=== PATIENT | male | born 1985 | race Caucasian/White ===

== ENCOUNTER 2016-08-21 10:50 | Inpatient (IN) | payer MEDICARE, MEDICAID ==
[~2016-08-21] VITALS: Ht 180.3 cm; Wt 81.8 kg
[~2016-08-21 10:50] MED LIST: QUET200T PO
[2016-08-21 13:36] VITALS: BP 110/66
[2016-08-21] MEDS ORDERED: ZOLPIDEM TARTRATE 10 MG TABLET PO PRN (13:45)
[2016-08-21] MEDS ORDERED: HALOPERIDOL 5 MG TABLET PO PRN (13:45)
[2016-08-21 14:08] VITALS: BP 120/65
[2016-08-21 14:15] VITALS: BP 120/65
[2016-08-21] MEDS ORDERED: INFLUENZA VIRUS VACCINE QVS 2016-17 (3YR+)/PF 60 MCG/0.5 ML SYRINGE IM ONE (14:15)
[2016-08-21 16:06] VITALS: BP 108/62
[2016-08-21] MEDS: QUEtiapine FUMARATE 200 MG TABLET PO SCH (20:41)
[2016-08-22] MEDS: NICOTINE 21 MG/24 HOUR PATCH TD SCH (08:48)
[2016-08-22] MEDS: QUEtiapine FUMARATE 200 MG TABLET PO SCH ×2 (08:48→20:41)
[2016-08-22] MEDS: LORazepam 2 MG TABLET PO PRN (08:50)
[2016-08-22] MEDS ORDERED: ALBUTEROL SULFATE HFA 90 MCG/PUFF 8 GM INHALER IH PRN (11:00)
[2016-08-22] MEDS ORDERED: PETROLATUM,WHITE 71 GM JELLY TP PRN (11:00)
[2016-08-22] MEDS ORDERED: ONDANSETRON HCL 4 MG TABLET PO PRN (11:00)
[2016-08-22] MEDS ORDERED: CloNIDine HCL 0.1 MG TABLET PO PRN (11:00)
[2016-08-22] MEDS ORDERED: MAGNESIUM HYDROXIDE SUSPENSION 30 ML UDCUP PO PRN (11:00)
[2016-08-22] MEDS ORDERED: LOPERAMIDE HCL 2 MG CAPSULE PO PRN (11:00)
[2016-08-22 16:24] VITALS: BP 122/79
[2016-08-22] MEDS: BACITRACIN 28.4 GM OINTMENT TP PRN (18:06)
[2016-08-23] MEDS: BACITRACIN 28.4 GM OINTMENT TP PRN (02:14)
[2016-08-23 02:55] VITALS: BP 108/74
[2016-08-23 06:35] VITALS: BP 126/87
[2016-08-23] MEDS: LORazepam 2 MG TABLET PO PRN ×3 (06:43→20:37)
[2016-08-23 08:14] VITALS: BP 115/73
[2016-08-23] MEDS: QUEtiapine FUMARATE 200 MG TABLET PO SCH ×2 (10:11→20:36)
[2016-08-23] MEDS: NICOTINE 21 MG/24 HOUR PATCH TD SCH (10:11)
[2016-08-23] MEDS: IBUPROFEN 600 MG TABLET PO PRN (13:41)
[2016-08-23] MEDS: BENZOCAINE/MENTHOL LOZENGE MM PRN (15:04)
[2016-08-23 16:04] VITALS: BP 110/73
[2016-08-24 02:10] VITALS: BP 110/66
[2016-08-24] MEDS: ACETAMINOPHEN 325 MG TABLET PO PRN ×2 (02:12→13:39)
[2016-08-24 05:55] VITALS: BP 126/64
[2016-08-24] MEDS: MAG HYDROX/AL HYDROX/SIMETH ES 30 ML SUSPENSION UDCUP PO PRN ×2 (06:02→13:00)
[2016-08-24] MEDS: NICOTINE 21 MG/24 HOUR PATCH TD SCH (09:00)
[2016-08-24] MEDS: IBUPROFEN 600 MG TABLET PO PRN (09:28)
[2016-08-24] MEDS: QUEtiapine FUMARATE 200 MG TABLET PO SCH ×2 (09:28→20:41)
[2016-08-24 16:12] VITALS: BP 100/63
[2016-08-24 16:21] VITALS: BP 120/77
[2016-08-24] MEDS: LORazepam 2 MG TABLET PO PRN (16:21)
[2016-08-25 02:53] VITALS: BP 123/79
[2016-08-25 06:12] VITALS: BP 107/64
[2016-08-25] MEDS: IBUPROFEN 600 MG TABLET PO PRN ×2 (06:18→14:07)
[2016-08-25 08:21] VITALS: BP 95/64
[2016-08-25] MEDS: NICOTINE 21 MG/24 HOUR PATCH TD SCH (08:42)
[2016-08-25] MEDS: QUEtiapine FUMARATE 200 MG TABLET PO SCH ×2 (08:42→20:42)
[2016-08-25] MEDS: BENZOCAINE/MENTHOL LOZENGE MM PRN (09:29)
[2016-08-25] MEDS: LORazepam 2 MG TABLET PO PRN (12:37)
[2016-08-25 14:03] VITALS: BP 116/75
[2016-08-25 16:16] VITALS: BP 108/86
[2016-08-26 00:35] VITALS: BP 115/63
[2016-08-26] MEDS: LORazepam 2 MG TABLET PO PRN ×2 (00:43→15:40)
[2016-08-26] MEDS: IBUPROFEN 600 MG TABLET PO PRN ×2 (00:43→16:27)
[2016-08-26 06:27] VITALS: BP 106/72
[2016-08-26] MEDS: ACETAMINOPHEN 325 MG TABLET PO PRN (06:28)
[2016-08-26 08:21] LABS: BASOPHILS % (AUTO) 0.8 % (0.0-2.0); EOSINOPHILS % (AUTO) 8.3 % (1.0-6.0); HEMATOCRIT 40.6 % (41-53); HEMOGLOBIN 13.3 g/dL (13.5-17.5); LYMPHOCYTES # (AUTO) 2.7 K/uL (1.0-4.8); LYMPHOCYTES % (AUTO) 31.1 % (22.0-44.0); MEAN CORPUSCULAR HEMOGLOBIN 28.5 pg (26.0-34.0); MEAN CORPUSCULAR HGB CONC 32.7 G/dL (31.0-37.0); MEAN CORPUSCULAR VOLUME 87 fL (80-100); MONOCYTES # (AUTO) 0.8 K/uL (0.1-1.0); MONOCYTES % (AUTO) 9.7 % (2.0-9.0); NEUTROPHILS # (AUTO) 4.4 K/uL (1.8-7.7); NEUTROPHILS % (AUTO) 50.1 % (40.0-70.0); PLATELET COUNT (AUTO) 264 K/uL (150-450); RED BLOOD CELL COUNT(AUTO) 4.66 MIL/uL (4.50-5.90); RED CELL DISTRIBUTION WIDTH 13.4 % (11.5-14.5); WHITE BLOOD COUNT (AUTO) 8.7 K/uL (4.5-11.0)
[2016-08-26 09:17] LABS: ALANINE AMINOTRANSFERASE 28 U/L (12-78); ALBUMIN 3.1 g/dL (3.4-5.0); ANION GAP 8 mmol/L (8-16); ASPARTATE AMINOTRANSFERASE 18 U/L (15-37); BILIRUBIN,TOTAL 0.2 mg/dL (0.1-1.0); CALCIUM, TOTAL 8.4 mg/dL (8.8-10.5); CARBON DIOXIDE 27 mmol/L (22-29); CHLORIDE 106 mmol/L (98-107); CREATININE 0.81 mg/dL (0.60-1.30); GLOMERULAR FILTR. RATE CALC > 60 mL/min (>60); POTASSIUM 4.2 mmol/L (3.5-5.1); SODIUM SERUM 141 mmol/L (136-145); UREA NITROGEN, BLOOD 11 mg/dL (7-18)
[2016-08-26 09:52] VITALS: BP 109/65
[2016-08-26] MEDS: NICOTINE 21 MG/24 HOUR PATCH TD SCH (09:54)
[2016-08-26] MEDS: QUEtiapine FUMARATE 200 MG TABLET PO SCH ×2 (09:55→20:37)
[2016-08-26 16:05] VITALS: BP 112/63
[2016-08-27 03:38] VITALS: BP 100/63
[2016-08-27] MEDS: ACETAMINOPHEN 325 MG TABLET PO PRN (03:38)
[2016-08-27] MEDS: FERROUS SULFATE 325 MG EC TABLET PO SCH ×2 (06:22→16:38)
[2016-08-27] MEDS: QUEtiapine FUMARATE 200 MG TABLET PO SCH ×2 (09:24→20:33)
[2016-08-27] MEDS: LORazepam 2 MG TABLET PO PRN (09:25)
[2016-08-27] MEDS: NICOTINE 21 MG/24 HOUR PATCH TD SCH (09:25)
[2016-08-27] MEDS: IBUPROFEN 600 MG TABLET PO PRN (09:26)
[2016-08-27] MEDS: BENZOCAINE/MENTHOL LOZENGE MM PRN (15:24)
[2016-08-27 16:08] VITALS: BP 114/62
[2016-08-28 05:11] VITALS: BP 111/65
[2016-08-28] MEDS: IBUPROFEN 600 MG TABLET PO PRN (05:16)
[2016-08-28] MEDS: FERROUS SULFATE 325 MG EC TABLET PO SCH ×2 (06:43→16:34)
[2016-08-28] MEDS: QUEtiapine FUMARATE 200 MG TABLET PO SCH ×2 (08:50→21:02)
[2016-08-28] MEDS: NICOTINE 21 MG/24 HOUR PATCH TD SCH (08:50)
[2016-08-28 12:49] VITALS: BP 110/52
[2016-08-28] MEDS: ACETAMINOPHEN 325 MG TABLET PO PRN (12:49)
[2016-08-28 16:10] VITALS: BP 114/68
[2016-08-29 06:46] VITALS: BP 117/65
[2016-08-29] MEDS: FERROUS SULFATE 325 MG EC TABLET PO SCH ×2 (07:26→16:55)
[2016-08-29 08:25] LABS: CHOL/HDL RATIO 3.3 (4.2-7.3); THYROID STIMULATING HORMONE 5.32 uIU/mL (0.36-3.74)
[2016-08-29 08:27] VITALS: BP 105/64
[2016-08-29] MEDS: NICOTINE 21 MG/24 HOUR PATCH TD SCH (08:35)
[2016-08-29] MEDS: IBUPROFEN 600 MG TABLET PO PRN (09:59)
[2016-08-29] MEDS: QUEtiapine FUMARATE 200 MG TABLET PO SCH ×2 (10:09→20:25)
[2016-08-29 11:05] VITALS: BP 114/64
[2016-08-29 16:05] VITALS: BP 108/60
[2016-08-29] MEDS: LORazepam 2 MG TABLET PO PRN (16:55)
[2016-08-30 06:37] VITALS: BP 108/80
[2016-08-30] MEDS: LEVOTHYROXINE SODIUM 25 MCG TABLET PO SCH (07:00)
[2016-08-30] MEDS: FERROUS SULFATE 325 MG EC TABLET PO SCH ×2 (07:00→16:56)
[2016-08-30 08:04] VITALS: BP 104/61
[2016-08-30] MEDS: QUEtiapine FUMARATE 200 MG TABLET PO SCH ×2 (08:37→20:16)
[2016-08-30] MEDS: CHOLECALCIFEROL (VIT D3) 1,000 UNITS TABLET PO SCH (08:37)
[2016-08-30] MEDS: NICOTINE 21 MG/24 HOUR PATCH TD SCH (08:37)
[2016-08-30] MEDS: BENZOCAINE/MENTHOL LOZENGE MM PRN (09:45)
[2016-08-30 16:11] VITALS: BP 121/75
[2016-08-30] MEDS: LORazepam 2 MG TABLET PO PRN (16:57)
[2016-08-31 06:12] VITALS: BP 107/65
[2016-08-31] MEDS: LEVOTHYROXINE SODIUM 25 MCG TABLET PO SCH (06:49)
[2016-08-31] MEDS: FERROUS SULFATE 325 MG EC TABLET PO SCH ×2 (06:50→16:37)
[2016-08-31 08:09] VITALS: BP 108/72
[2016-08-31] MEDS: QUEtiapine FUMARATE 200 MG TABLET PO SCH ×2 (09:38→20:31)
[2016-08-31] MEDS: NICOTINE 21 MG/24 HOUR PATCH TD SCH (09:38)
[2016-08-31] MEDS: CHOLECALCIFEROL (VIT D3) 1,000 UNITS TABLET PO SCH (09:38)
[2016-08-31 16:11] VITALS: BP 110/67
[2016-09-01] MEDS: LEVOTHYROXINE SODIUM 25 MCG TABLET PO SCH (06:37)
[2016-09-01] MEDS: FERROUS SULFATE 325 MG EC TABLET PO SCH (06:52)
[2016-09-01 08:02] VITALS: BP 112/63
[2016-09-01] MEDS: CHOLECALCIFEROL (VIT D3) 1,000 UNITS TABLET PO SCH (08:44)
[2016-09-01] MEDS: NICOTINE 21 MG/24 HOUR PATCH TD SCH (08:44)
[2016-09-01] MEDS: QUEtiapine FUMARATE 200 MG TABLET PO SCH (08:44)
[2016-09-01] MEDS ORDERED: VITAD1000 PO (13:32)
[2016-09-01] MEDS ORDERED: LEVO25TA9 PO (13:32)
[2016-09-01] MEDS ORDERED: FERR-89 PO (13:32)
== END 2016-09-01 14:45 | disposition home or self-care (01) | DRG 885 ==
LOC: B2S 13:50 → EDSTATUS 14:06 → B2X 15:47
DX: F25.0 Schizoaffective disorder, bipolar type (principal); F17.200 Nicotine dependence, unspecified, uncomplicated; K59.00 Constipation, unspecified; D64.9 Anemia, unspecified; E55.9 Vitamin D deficiency, unspecified; E03.9 Hypothyroidism, unspecified; Z79.899 Other long term (current) drug therapy; Z88.0 Allergy status to penicillin; Z71.6 Tobacco abuse counseling; Z56.0 Unemployment, unspecified; Z71.41 Alcohol abuse counseling and surveillance of alcoholic; Z72.89 Other problems related to lifestyle; Z28.21 Immunization not carried out because of patient refusal
CPT/HCPCS: 82306; 84443; 90471

== ENCOUNTER 2017-08-22 01:17 | Emergency (ER) | payer MEDICAID, MEDICARE ==
[~2017-08-22] VITALS: Ht 172.7 cm; Wt 72.7 kg
[2017-08-22] MEDS ORDERED: IBUPROFEN 800 MG TABLET PO ONE (04:15)
[2017-08-22 04:59] VITALS: BP 135/92
== END 2017-08-22 06:01 | disposition home or self-care (01) ==
LOC: EMS 01:19
DX: M77.9 Enthesopathy, unspecified (principal); F17.210 Nicotine dependence, cigarettes, uncomplicated; Z88.0 Allergy status to penicillin
CPT/HCPCS: 99283; 99406